=== PATIENT | male | born 1995 | race Hispanic/Latino ===

== ENCOUNTER 2018-10-04 00:13 | Emergency (ER) | payer OTHER ==
[2018-10-04 01:00] LABS: Basophils % (Auto) 0.4 % (0.0-1.8); Eosinophils % (Auto) 0.3 % (0.0-4.3); Hematocrit 38.6 % (35.5-45.6); Hemoglobin 13.7 gm/dl (11.8-15.2); Lymphocytes # (Auto) 2.6 K/mm3 (1.2-5.4); Lymphocytes % (Auto) 27.6 % (13.4-35.0); Mean Corpuscular HGB Conc 36 % (32-34); Mean Corpuscular Volume 96 fl (84-94); Monocytes # (Auto) 1.3 K/mm3 (0.0-0.8); Monocytes % (Auto) 14.2 % (0.0-7.3); Platelet Count 159 K/mm3 (140-440); Red Blood Count 4.03 M/mm3 (3.65-5.03)
[2018-10-04 01:07] LABS: BUN/Creatinine Ratio 30; Blood Urea Nitrogen 24 mg/dL (9-20); Calcium 9.7 mg/dL (8.4-10.2); Hemolysis Index 8
--- NOTE | 2018-10-04 02:08 | Emergency Department Report ---
ED General Adult HPI - General Chief complaint: Medical Clearance Stated complaint: CHEST PAIN Time Seen by Provider: 10/04/18 01:30 Source: patient Mode of arrival: Ambulatory Limitations: Language Barrier - History of Present Illness Initial comments: 23 yo M presents to ED. Pt reports he was recently released from senior living. Currentlt staying at [facility], but does not want to stay there anymore. Pt initially triaged as abdominal pain. However, pt denies. Pt states denies any pain at all. States he is concerned that blood pressure may be elevated. Denies AYALA, dizziness. This patient is familiar to me as I have taken care of him at other facilities. Pt has severe speech impediment, very difficult to understand. Somewhat able to write, however, spelling is usually incorrect. Today, pt denies SI, HI. Denies drug use -: This evening Associated Symptoms: denies: chest pain, headaches, nausea/vomiting, shortness of breath - Related Data Allergies Allergy/AdvReac Type Severity Reaction Status Date / Time No Known Allergies Allergy Unverified 10/04/18 00:22 ED Review of Systems ROS: Stated complaint: CHEST PAIN Other details as noted in HPI Comment: All other systems reviewed and negative Respiratory: denies: shortness of breath Cardiovascular: denies: chest pain Gastrointestinal: denies: abdominal pain Neurological: denies: headache ED Physical Exam - General Limitations: No Limitations General appearance: alert, in no apparent distress - Head Head exam: Present: atraumatic, normocephalic - Eye Eye exam: Present: normal appearance - ENT ENT exam: Present: mucous membranes moist - Neck Neck exam: Present: normal inspection - Respiratory Respiratory exam: Present: normal lung sounds bilaterally. Absent: respiratory distress - Cardiovascular Cardiovascular Exam: Present: regular rate, normal rhythm - GI/Abdominal GI/Abdominal exam: Present: soft. Absent: distended, tenderness - Extremities Exam Extremities exam: Present: normal inspection - Neurological Exam Neurological exam: Present: alert, other (severe speech impediment present). Absent: motor sensory deficit - Psychiatric Psychiatric exam: Present: normal affect, normal mood - Skin Skin exam: Present: warm, dry, intact, normal color ED Course Vital Signs 10/04/18 00:20 Temperature 98.3 F Pulse Rate 88 Respiratory 20 Rate Blood Pressure 121/72 O2 Sat by Pulse 96 Oximetry ED Medical Decision Making - Lab Data Result diagrams: 10/04/18 00:25 10/04/18 00:25 Critical care attestation.: If time is entered above; I have spent that time in minutes in the direct care of this critically ill patient, excluding procedure time. ED Disposition Clinical Impression: No problem, feared complaint unfounded Disposition: DC-01 TO HOME OR SELFCARE Is pt being admited?: No Condition: Stable Referrals: ARELTH BLACKBURN MD [Primary Care Provider] - 3-5 Days Time of Disposition: 02:09
[2018-10-04 04:11] VITALS: BP 105/50
== END 2018-10-04 03:40 | disposition home or self-care (01) ==
LOC: ED 00:13
DX: Z71.1 Person with feared health complaint in whom no diagnosis is made (principal)
CPT/HCPCS: 36415; 80048; 85025; 99283; G0480; 80320

== ENCOUNTER 2019-02-23 20:03 | Emergency (ER) | payer MEDICARE ==
[2019-02-23 20:36] VITALS: BP 112/80
--- NOTE | 2019-02-23 20:38 | Event Note ---
ED Screening Note Date of service: 02/23/19 Time: 20:31 ED Screening Note: This is a 23 y.o. M. that presents to the ER requesting help. Patient states his girlfriend and dad dropped him off at the hospital. Denies SI/HI This initial assessment/diagnostic orders/clinical plan/treatment(s) is/are subject to change based on patients health status, clinical progression and re- assessment by fellow clinical providers in the ED. Further treatment and workup at subsequent clinical providers discretion. Patient/guardian urged not to elope from the ED as their condition may be serious if not clinically assessed and managed. Initial orders include:
--- NOTE | 2019-02-23 20:53 | Emergency Department Report ---
Chief Complaint: Medical Clearance Stated Complaint: KIM DAVIS Time Seen by Provider: 02/23/19 20:24 - HPI History of Present Illness: Disregard prior MSE note. This is a 23 y.o. M. that presents to the ER requesting help. Patient states his girlfriend and dad dropped him off at the hospital. Patient states he was here last night and talked to the social worker aide. States he have no complaints and don't understand why he is here. Denies SI/HI, chest pain, palpitations, shortness of breath, nausea, vomiting - Exam Vital Signs: Vital Signs 02/23/19 20:32 Temperature 98.3 F Pulse Rate 100 H Respiratory 20 Rate Blood Pressure 112/80 O2 Sat by Pulse 100 Oximetry MSE screening note: Focused history and physical exam performed. Due to findings the following was ordered: ED Medical Decision Making - Medical Decision Making Patient seen by this provider. Vitals are stable and patient in no acute distress. Patient not sure why he wad dropped off in the ER. Denies chest pain, sob, n/v/d, abdominal pain, palpitations, and SI/HI thoughts. Patient was in ER yesterday and stayed until this morning and spoke with social worker aide. Patient left after speaking with social worker aide. At time of discharge, the patient does not seem toxic or ill in appearance. No acute signs of distress noted. Patient agrees to discharge treatment plan of care. No further questions noted by the patient. ED Disposition for MSE Clinical Impression: Feared complaint without diagnosis Disposition: DC-01 TO HOME OR SELFCARE Is pt being admited?: No Condition: Stable Referrals: [facility] [Outside] - 3-5 Days [facility] [Outside] - 3-5 Days [facility] [Outside] - 3-5 Days
== END 2019-02-23 21:05 | disposition home or self-care (01) ==
LOC: ED 20:03 → EDBD 20:03 → ED 21:05
DX: Z71.1 Person with feared health complaint in whom no diagnosis is made (principal); Z88.0 Allergy status to penicillin; Z88.6 Allergy status to analgesic agent
CPT/HCPCS: 99282

== ENCOUNTER 2019-04-12 19:39 | Emergency (ER) | payer MEDICARE ==
[2019-04-12 21:08] LABS: Basophils % (Auto) 0.7 % (0.0-1.8); Eosinophils # (Auto) 0.1 K/mm3 (0.0-0.4); Hematocrit 44.9 % (35.5-45.6); Hemoglobin 15.8 gm/dl (11.8-15.2); Lymphocytes # (Auto) 1.8 K/mm3 (1.2-5.4); Lymphocytes % (Auto) 38.6 % (13.4-35.0); Mean Corpuscular HGB Conc 35 % (32-34); Mean Corpuscular Volume 95 fl (84-94); Monocytes # (Auto) 0.5 K/mm3 (0.0-0.8); Monocytes % (Auto) 10.4 % (0.0-7.3); Platelet Count 188 K/mm3 (140-440); Red Blood Count 4.72 M/mm3 (3.65-5.03); Red Cell Distribution Width 13.7 % (13.2-15.2)
[2019-04-12 21:17] LABS: Bilirubin,Urine NEG (Negative); Blood,Urine NEG (Negative); Color,Urine Yellow (Yellow); Protein,Urine <15 mg/dL mg/dL (Negative); Urobilinogen,Urine < 2.0 mg/dL (<2.0)
[2019-04-12 21:22] LABS: Amphetamine Screen,Urine PRESUMPTIVE NEGATIVE; Benzodiazepines Screen,Urine PRESUMPTIVE NEGATIVE; Cannabinoid Screen,Urine PRESUMPTIVE NEGATIVE; Cocaine Screen,Urine PRESUMPTIVE NEGATIVE; Methadone Screen,Urine PRESUMPTIVE NEGATIVE; Opiate Screen,Urine PRESUMPTIVE NEGATIVE
[2019-04-12 21:26] LABS: BUN/Creatinine Ratio 14; Blood Urea Nitrogen 10 mg/dL (9-20); Calcium 9.4 mg/dL (8.4-10.2); Hemolysis Index 13
--- NOTE | 2019-04-12 22:40 | Emergency Department Report ---
<RIVER SIMON - Last Filed: 04/12/19 22:36> ED Psych HPI - General Chief Complaint: Psych Stated Complaint: MH Time Seen by Provider: 04/12/19 20:40 Source: patient Mode of arrival: Ambulatory Limitations: No Limitations - History of Present Illness Initial Comments: 23-year-old male with a past medical history schizophrenia, HIV, bipolar, intellectual disability, speech impediment presents to the hospital with possible manic episode. Patient admits to not taking his medication for the last 4 weeks. He does recall that he is on Geodon. As per triage counselor from [facility] stated that patient is manic and not sleeping for days. Patient is cooperative and calm in the ED and denies suicidal or h omicidal ideation. pmh as per chart, pt admits to taking geodon but does not admit to any specific medical problem - Related Data Allergies Allergy/AdvReac Type Severity Reaction Status Date / Time Penicillins Allergy Unknown Verified 02/23/19 20:47 tramadol Allergy Unknown Verified 02/23/19 20:48 ziprasidone Allergy Unknown Verified 02/23/19 20:48 ED Review of Systems Comment: All other systems reviewed and negative ED Past Medical Hx - Past Medical History Previous Medical History?: Yes Hx Psychiatric Treatment: Yes (Schizophrenia,Bipolar,intellectual disability) Hx HIV: Yes Additional medical history: Inellectual disability, Speech impediment,inpatient - Surgical History Past Surgical History?: No - Social History Smoking Status: Current Every Day Smoker Substance Use Type: None ED Physical Exam - General Limitations: No Limitations - Other Other exam information: General: No acute distress Head: Atraumatic Eyes: normal appearance ENT: Moist mucous membranes Neck: Normal appearance, no midline tenderness Chest: Clear to auscultation bilaterally CV: Regular rate and rhythm Abdomen: Soft, normal bowel sounds, nontender, nondistended, no rebound or guarding Back: Normal inspection Extremity: Normal inspection infection, full range of motion Neuro: Alert O x 3, no facial asymmetry, speech impediment, no gross motor sensory deficit Psych: Appropriate behavior Skin: No rash ED Medical Decision Making - Lab Data Result diagrams: 04/12/19 20:48 04/12/19 20:48 Lab Results 04/12/19 04/12/19 04/12/19 Range/Units 20:48 20:48 20:48 WBC (4.5-11.0) K/mm3 RBC (3.65-5.03) M/mm3 Hgb (11.8-15.2) gm/dl Hct (35.5-45.6) % MCV (84-94) fl MCH (28-32) pg MCHC (32-34) % RDW (13.2-15.2) % Plt Count (140-440) K/mm3 Lymph % (Auto) (13.4-35.0) % [place] % (Auto) (0.0-7.3) % Eos % (Auto) (0.0-4.3) % Baso % (Auto) (0.0-1.8) % Lymph # (1.2-5.4) K/mm3 [place] # (0.0-0.8) K/mm3 Eos # (0.0-0.4) K/mm3 Baso # (0.0-0.1) K/mm3 Seg Neutrophils % (40.0-70.0) % Seg Neutrophils # (1.8-7.7) K/mm3 Sodium (137-145) mmol/L Potassium (3.6-5.0) mmol/L Chloride (98-107) mmol/L Carbon Dioxide (22-30) mmol/L Anion Gap mmol/L BUN (9-20) mg/dL Creatinine (0.8-1.5) mg/dL Estimated GFR ml/min BUN/Creatinine Ratio % Glucose (75-100) mg/dL Calcium (8.4-10.2) mg/dL Urine Color Yellow (Yellow) Urine Turbidity Cloudy (Clear) Urine pH 8.0 H (5.0-7.0) Ur Specific [place] 1.015 (1.003-1.030) Urine Protein <15 mg/dl (Negative) mg/dL Urine Glucose (UA) Neg (Negative) mg/dL Urine Ketones Neg (Negative) mg/dL Urine Blood Neg (Negative) Urine Nitrite Neg (Negative) Urine Bilirubin Neg (Negative) Urine Urobilinogen < 2.0 (<2.0) mg/dL Ur Leukocyte Esterase Neg (Negative) Urine WBC (Auto) 3.0 (0.0-6.0) /HPF Urine RBC (Auto) 1.0 (0.0-6.0) /HPF Urine Yeast (Budding) 3+ /HPF Salicylates < 0.3 L (2.8-20.0) mg/dL Urine Opiates Screen Presumptive negative Urine Methadone Screen Presumptive negative Acetaminophen (10.0-30.0) ug/mL Ur Barbiturates Screen Presumptive negative Ur Phencyclidine Scrn Presumptive negative Ur Amphetamines Screen Presumptive negative U Benzodiazepines Scrn Presumptive negative Urine Cocaine Screen Presumptive negative U Marijuana (THC) Screen Presumptive negative Drugs of Abuse Note Disclamer Plasma/Serum Alcohol (0-0.07) % 04/12/19 04/12/19 04/12/19 Range/Units 20:48 20:48 20:48 WBC (4.5-11.0) K/mm3 RBC (3.65-5.03) M/mm3 Hgb (11.8-15.2) gm/dl Hct (35.5-45.6) % MCV (84-94) fl MCH (28-32) pg MCHC (32-34) % RDW (13.2-15.2) % Plt Count (140-440) K/mm3 Lymph % (Auto) (13.4-35.0) % [place] % (Auto) (0.0-7.3) % Eos % (Auto) (0.0-4.3) % Baso % (Auto) (0.0-1.8) % Lymph # (1.2-5.4) K/mm3 [place] # (0.0-0.8) K/mm3 Eos # (0.0-0.4) K/mm3 Baso # (0.0-0.1) K/mm3 Seg Neutrophils % (40.0-70.0) % Seg Neutrophils # (1.8-7.7) K/mm3 Sodium 139 (137-145) mmol/L Potassium 3.8 (3.6-5.0) mmol/L Chloride 106.1 (98-107) mmol/L Carbon Dioxide 23 (22-30) mmol/L Anion Gap 14 mmol/L BUN 10 (9-20) mg/dL Creatinine 0.7 L (0.8-1.5) mg/dL Estimated GFR > 60 ml/min BUN/Creatinine Ratio 14 % Glucose 94 (75-100) mg/dL Calcium 9.4 (8.4-10.2) mg/dL Urine Color (Yellow) Urine Turbidity (Clear) Urine pH (5.0-7.0) Ur Specific [place] (1.003-1.030) Urine Protein (Negative) mg/dL Urine Glucose (UA) (Negative) mg/dL Urine Ketones (Negative) mg/dL Urine Blood (Negative) Urine Nitrite (Negative) Urine Bilirubin (Negative) Urine Urobilinogen (<2.0) mg/dL Ur Leukocyte Esterase (Negative) Urine WBC (Auto) (0.0-6.0) /HPF Urine RBC (Auto) (0.0-6.0) /HPF Urine Yeast (Budding) /HPF Salicylates (2.8-20.0) mg/dL Urine Opiates Screen Urine Methadone Screen Acetaminophen < 5.0 L (10.0-30.0) ug/mL Ur Barbiturates Screen Ur Phencyclidine Scrn Ur Amphetamines Screen U Benzodiazepines Scrn Urine Cocaine Screen U Marijuana (THC) Screen Drugs of Abuse Note Plasma/Serum Alcohol < 0.01 (0-0.07) % 04/12/19 Range/Units 20:48 WBC 4.6 (4.5-11.0) K/mm3 RBC 4.72 (3.65-5.03) M/mm3 Hgb 15.8 H (11.8-15.2) gm/dl Hct 44.9 (35.5-45.6) % MCV 95 H (84-94) fl MCH 33 H (28-32) pg MCHC 35 H (32-34) % RDW 13.7 (13.2-15.2) % Plt Count 188 (140-440) K/mm3 Lymph % (Auto) 38.6 H (13.4-35.0) % [place] % (Auto) 10.4 H (0.0-7.3) % Eos % (Auto) 3.0 (0.0-4.3) % Baso % (Auto) 0.7 (0.0-1.8) % Lymph # 1.8 (1.2-5.4) K/mm3 [place] # 0.5 (0.0-0.8) K/mm3 Eos # 0.1 (0.0-0.4) K/mm3 Baso # 0.0 (0.0-0.1) K/mm3 Seg Neutrophils % 47.3 (40.0-70.0) % Seg Neutrophils # 2.2 (1.8-7.7) K/mm3 Sodium (137-145) mmol/L Potassium (3.6-5.0) mmol/L Chloride (98-107) mmol/L Carbon Dioxide (22-30) mmol/L Anion Gap mmol/L BUN (9-20) mg/dL Creatinine (0.8-1.5) mg/dL Estimated GFR ml/min BUN/Creatinine Ratio % Glucose (75-100) mg/dL Calcium (8.4-10.2) mg/dL Urine Color (Yellow) Urine Turbidity (Clear) Urine pH (5.0-7.0) Ur Specific [place] (1.003-1.030) Urine Protein (Negative) mg/dL Urine Glucose (UA) (Negative) mg/dL Urine Ketones (Negative) mg/dL Urine Blood (Negative) Urine Nitrite (Negative) Urine Bilirubin (Negative) Urine Urobilinogen (<2.0) mg/dL Ur Leukocyte Esterase (Negative) Urine WBC (Auto) (0.0-6.0) /HPF Urine RBC (Auto) (0.0-6.0) /HPF Urine Yeast (Budding) /HPF Salicylates (2.8-20.0) mg/dL Urine Opiates Screen Urine Methadone Screen Acetaminophen (10.0-30.0) ug/mL Ur Barbiturates Screen Ur Phencyclidine Scrn Ur Amphetamines Screen U Benzodiazepines Scrn Urine Cocaine Screen U Marijuana (THC) Screen Drugs of Abuse Note Plasma/Serum Alcohol (0-0.07) % - Medical Decision Making pt is medically cleared pending psych eval for guidance regarding treatment - Differential Diagnosis psychosis, bipolar, clark, medication noncompliance Critical Care Time: No ED Disposition Clinical Impression: Bipolar disorder, Medical clearance for psychiatric admission, Noncompliance with medication regimen, Schizophrenia Disposition: DC-01 TO HOME OR SELFCARE Condition: Stable Referrals: [facility] [Outside] - 3-5 Days <FLORENCE ROWELL - Last Filed: 04/13/19 15:57> ED Review of Systems ROS: Stated complaint: MH Other details as noted in HPI ED Course Vital Signs 04/12/19 04/13/19 04/13/19 19:51 01:28 07:00 Temperature 98 F 98.5 F 98.3 F Pulse Rate 84 88 99 H Respiratory 18 16 20 Rate Blood Pressure 130/82 118/58 97/61 [Right] O2 Sat by Pulse 97 95 Oximetry 04/13/19 08:27 Temperature 98.3 F Pulse Rate 98 H Respiratory 18 Rate Blood Pressure 118/66 [Right] O2 Sat by Pulse Oximetry ED Medical Decision Making - Lab Data Result diagrams: 04/12/19 20:48 04/12/19 20:48 - Medical Decision Making Our psychiatric team has evaluated Mr. Montenegro. He was deemed appropriate for discharge. He was not on involuntary hold. He was referred to the ED for insomnia. Critical care attestation.: If time is entered above; I have spent that time in minutes in the direct care of this critically ill patient, excluding procedure time. ED Disposition Is pt being admited?: No Does the pt Need Aspirin: No
[2019-04-13 08:30] VITALS: BP 118/66
== END 2019-04-13 16:30 | disposition home or self-care (01) ==
LOC: ED 19:39
DX: F31.9 Bipolar disorder, unspecified (principal); F20.9 Schizophrenia, unspecified; F17.200 Nicotine dependence, unspecified, uncomplicated; Z88.0 Allergy status to penicillin; Z88.6 Allergy status to analgesic agent
CPT/HCPCS: 36415; 80048; 80307; 80320; 81001; 85025; G0480

== ENCOUNTER 2019-06-17 09:18 | Emergency (ER) | payer MEDICARE ==
[2019-06-17 09:23] VITALS: BP 126/73
--- NOTE | 2019-06-17 11:18 | Emergency Department Report ---
ED Psych HPI - General Chief Complaint: Psych Stated Complaint: MH Time Seen by Provider: 06/17/19 10:25 Source: patient Mode of arrival: Ambulatory - History of Present Illness Initial Comments: Patient is a 23-year-old male with a past medical history of schizophrenia and bipolar disorder and developmental delay who is presenting with erratic behavior. Patient was noted at his day center to be showing poor judgment and poor impulse control. Patient took his clothes off and was running around his day center. Was noted that the patient has been off of his Zyprexa for the past 3 days. - Related Data Previous Rx's Medication Instructions Recorded Last Taken Type OLANZapine [Zyprexa] 5 mg PO QHS #30 tablet 06/17/19 Unknown Rx OLANZapine [Zyprexa] 20 mg PO QHS #30 tablet 06/17/19 Unknown Rx Allergies Allergy/AdvReac Type Severity Reaction Status Date / Time Penicillins Allergy Unknown Verified 02/23/19 20:47 tramadol Allergy Unknown Verified 02/23/19 20:48 ziprasidone Allergy Unknown Verified 02/23/19 20:48 ED Review of Systems ROS: Stated complaint: MH Other details as noted in HPI Comment: All other systems reviewed and negative ED Past Medical Hx - Past Medical History Previous Medical History?: Yes Hx Psychiatric Treatment: Yes (Schizophrenia,Bipolar,intellectual disability) Hx HIV: Yes Additional medical history: Inellectual disability, Speech impediment,inpatient - Surgical History Past Surgical History?: No - Social History Smoking Status: Never Smoker Substance Use Type: None - Medications Home Medications: Home Medications Medication Instructions Recorded Confirmed Last Taken Type OLANZapine [Zyprexa] 5 mg PO QHS #30 tablet 06/17/19 Unknown Rx OLANZapine [Zyprexa] 20 mg PO QHS #30 tablet 06/17/19 Unknown Rx ED Physical Exam - General Limitations: Altered Mental Status General appearance: alert, in no apparent distress - Head Head exam: Present: atraumatic, normocephalic - Eye Eye exam: Present: normal appearance - ENT ENT exam: Present: mucous membranes moist - Neck Neck exam: Present: normal inspection - Respiratory Respiratory exam: Present: normal lung sounds bilaterally. Absent: respiratory distress, wheezes, rales, rhonchi - Cardiovascular Cardiovascular Exam: Present: regular rate, normal rhythm. Absent: systolic murmur, diastolic murmur, rubs, gallop - GI/Abdominal GI/Abdominal exam: Present: soft, normal bowel sounds. Absent: distended, tenderness, guarding, rebound - Rectal Rectal exam: Present: deferred - Extremities Exam Extremities exam: Present: normal inspection - Back Exam Back exam: Present: normal inspection - Neurological Exam Neurological exam: Present: alert, oriented X3 - Psychiatric Psychiatric exam: Present: normal affect, normal mood - Skin Skin exam: Present: warm, dry, intact, normal color. Absent: rash ED Course Vital Signs 06/17/19 06/17/19 09:22 10:19 Temperature 97.9 F Pulse Rate 92 H Respiratory 20 16 Rate Blood Pressure 126/73 [Right] O2 Sat by Pulse 96 Oximetry ED Medical Decision Making - Medical Decision Making Patient is not showing any signs of homicidal suicidal tendencies. Patient will be restarted on his Zyprexa and discharged home. Critical care attestation.: If time is entered above; I have spent that time in minutes in the direct care of this critically ill patient, excluding procedure time. ED Disposition Clinical Impression: Behavior disturbance, Medication refill Disposition: DC-01 TO HOME OR SELFCARE Is pt being admited?: No Does the pt Need Aspirin: No Condition: Stable Prescriptions: OLANZapine [Zyprexa] 20 mg PO QHS #30 tablet OLANZapine [Zyprexa] 5 mg PO QHS #30 tablet Time of Disposition: 11:18
== END 2019-06-17 11:21 | disposition home or self-care (01) ==
LOC: ED 09:18
DX: F91.9 Conduct disorder, unspecified (principal); F20.9 Schizophrenia, unspecified; F31.9 Bipolar disorder, unspecified; Z76.0 Encounter for issue of repeat prescription; Z88.0 Allergy status to penicillin; Z88.8 Allergy status to other drugs, medicaments and biological substances; Z21 Asymptomatic human immunodeficiency virus [HIV] infection status; Z79.899 Other long term (current) drug therapy

== ENCOUNTER 2019-07-30 22:47 | Emergency (ER) | payer MEDICARE ==
--- NOTE | 2019-07-30 23:13 | Emergency Department Report ---
<FLORENCE ROWELL - Last Filed: 07/30/19 23:55> ED Psych HPI - General Chief Complaint: Psych Stated Complaint: SUICIDAL THOUGHTS/MH EVAL Time Seen by Provider: 07/30/19 23:02 Source: patient, EMS Mode of arrival: Ambulatory Limitations: No Limitations - History of Present Illness Initial Comments: Mr. Montenegro is a 24-year-old male with history of bipolar disorder schizophrenia intellectual developmental delay who presents with suicidal and homicidal ideation. He denies intention to harm himself. He states that he wants to kill his father because he was not allowed to hang out with his parents. He did not take his psychiatric medications recently. Denies physical complaints. MD Complaint: suicidal ideation, other (Homicidal ideation) -: Sudden, This evening Associated Psychiatric Symptoms: suicidal ideation, homicidal ideation History of same: Yes Quality: constant Improves With: none Worsens With: none Context: not taking psychiatric Associated Symptoms: denies other symptoms Treatments Prior to Arrival: none If Self Harm: admits thoughts of - Related Data Previous Rx's Medication Instructions Recorded Last Taken Type OLANZapine [Zyprexa] 5 mg PO QHS #30 tablet 06/17/19 Unknown Rx OLANZapine [Zyprexa] 20 mg PO QHS #30 tablet 06/17/19 Unknown Rx Allergies Allergy/AdvReac Type Severity Reaction Status Date / Time Penicillins Allergy Unknown Verified 02/23/19 20:47 tramadol Allergy Unknown Verified 02/23/19 20:48 ziprasidone Allergy Unknown Verified 02/23/19 20:48 ED Review of Systems Comment: All other systems reviewed and negative Constitutional: denies: fever, malaise Cardiovascular: denies: chest pain Gastrointestinal: denies: abdominal pain Neurological: denies: headache Psychiatric: depression, homicidal thoughts, suicidal thoughts ED Past Medical Hx - Past Medical History Previous Medical History?: Yes Hx Psychiatric Treatment: Yes (Schizophrenia,Bipolar,intellectual disability) Hx HIV: Yes Additional medical history: Inellectual disability, Speech impediment,inpatient - Social History Smoking Status: Current Every Day Smoker Substance Use Type: Prescribed - Medications Home Medications: Home Medications Medication Instructions Recorded Confirmed Last Taken Type OLANZapine [Zyprexa] 5 mg PO QHS #30 tablet 06/17/19 07/30/19 Unknown Rx OLANZapine [Zyprexa] 20 mg PO QHS #30 tablet 06/17/19 07/30/19 Unknown Rx ED Physical Exam - General Limitations: No Limitations General appearance: alert, in no apparent distress - Head Head exam: Present: atraumatic, normocephalic - Eye Eye exam: Present: normal appearance - ENT ENT exam: Present: mucous membranes moist - Neck Neck exam: Present: normal inspection, full ROM - Respiratory Respiratory exam: Present: normal lung sounds bilaterally. Absent: respiratory distress, wheezes, rales, rhonchi - Cardiovascular Cardiovascular Exam: Present: regular rate, normal rhythm, normal heart sounds. Absent: systolic murmur, diastolic murmur, rubs, gallop - GI/Abdominal GI/Abdominal exam: Present: soft, normal bowel sounds. Absent: distended, tenderness, guarding, rebound - Rectal Rectal exam: Present: deferred - Extremities Exam Extremities exam: Present: normal inspection - Back Exam Back exam: Present: normal inspection - Neurological Exam Neurological exam: Present: alert, oriented X3 - Psychiatric Psychiatric exam: Present: normal affect, agitated, homicidal ideation - Skin Skin exam: Present: warm, dry, intact, normal color. Absent: rash ED Medical Decision Making - Lab Data Result diagrams: 07/30/19 23:08 07/30/19 23:08 Laboratory Results - last 24 hr 07/30/19 07/30/19 07/30/19 23:08 23:08 23:08 WBC 8.2 RBC 4.81 Hgb 16.3 H Hct 44.5 MCV 93 MCH 34 H MCHC 37 H RDW 13.8 Plt Count 220 Lymph % (Auto) 39.1 H Callahan % (Auto) 9.6 H Eos % (Auto) 2.2 Baso % (Auto) 0.5 Lymph # 3.2 Callahan # 0.8 Eos # 0.2 Baso # 0.0 Seg Neutrophils % 48.6 Seg Neutrophils # 4.0 Sodium 139 Potassium 3.9 Chloride 99.2 Carbon Dioxide 25 Anion Gap 19 BUN 19 Creatinine 1.0 Estimated GFR > 60 BUN/Creatinine Ratio 19 Glucose 113 H Calcium 9.9 Total Bilirubin 0.20 AST 19 ALT 17 Alkaline Phosphatase 79 Total Protein 7.2 Albumin 5.0 Albumin/Globulin Ratio 2.3 Urine Color Urine Turbidity Urine pH Ur Specific [place] Urine Protein Urine Glucose (UA) Urine Ketones Urine Blood Urine Nitrite Urine Bilirubin Urine Urobilinogen Ur Leukocyte Esterase Urine WBC (Auto) Urine RBC (Auto) Urine Bacteria (Auto) Amorphous Crystals Salicylates < 0.3 L Urine Opiates Screen Urine Methadone Screen Acetaminophen Ur Barbiturates Screen Ur Phencyclidine Scrn Ur Amphetamines Screen U Benzodiazepines Scrn Urine Cocaine Screen U Marijuana (THC) Screen Drugs of Abuse Note Plasma/Serum Alcohol 07/30/19 07/30/19 07/30/19 23:08 23:08 Unknown WBC RBC Hgb Hct MCV MCH MCHC RDW Plt Count Lymph % (Auto) [place] % (Auto) Eos % (Auto) Baso % (Auto) Lymph # Callahan # Eos # Baso # Seg Neutrophils % Seg Neutrophils # Sodium Potassium Chloride Carbon Dioxide Anion Gap BUN Creatinine Estimated GFR BUN/Creatinine Ratio Glucose Calcium Total Bilirubin AST ALT Alkaline Phosphatase Total Protein Albumin Albumin/Globulin Ratio Urine Color Yellow Urine Turbidity Slightly-cloudy Urine pH 6.0 Ur Specific [place] 1.014 Urine Protein <15 mg/dl Urine Glucose (UA) Neg Urine Ketones Neg Urine Blood Neg Urine Nitrite Neg Urine Bilirubin Neg Urine Urobilinogen < 2.0 Ur Leukocyte Esterase Neg Urine WBC (Auto) 1.0 Urine RBC (Auto) 3.0 Urine Bacteria (Auto) 1+ Amorphous Crystals Few Salicylates Urine Opiates Screen Urine Methadone Screen Acetaminophen < 5.0 L Ur Barbiturates Screen Ur Phencyclidine Scrn Ur Amphetamines Screen U Benzodiazepines Scrn Urine Cocaine Screen U Marijuana (THC) Screen Drugs of Abuse Note Plasma/Serum Alcohol < 0.01 07/30/19 Unknown WBC RBC Hgb Hct MCV MCH MCHC RDW Plt Count Lymph % (Auto) [place] % (Auto) Eos % (Auto) Baso % (Auto) Lymph # [place] # Eos # Baso # Seg Neutrophils % Seg Neutrophils # Sodium Potassium Chloride Carbon Dioxide Anion Gap BUN Creatinine Estimated GFR BUN/Creatinine Ratio Glucose Calcium Total Bilirubin AST ALT Alkaline Phosphatase Total Protein Albumin Albumin/Globulin Ratio Urine Color Urine Turbidity Urine pH Ur Specific [place] Urine Protein Urine Glucose (UA) Urine Ketones Urine Blood Urine Nitrite Urine Bilirubin Urine Urobilinogen Ur Leukocyte Esterase Urine WBC (Auto) Urine RBC (Auto) Urine Bacteria (Auto) Amorphous Crystals Salicylates Urine Opiates Screen Presumptive negative Urine Methadone Screen Presumptive negative Acetaminophen Ur Barbiturates Screen Presumptive negative Ur Phencyclidine Scrn Presumptive negative Ur Amphetamines Screen Presumptive negative U Benzodiazepines Scrn Presumptive negative Urine Cocaine Screen Presumptive negative U Marijuana (THC) Screen Presumptive negative Drugs of Abuse Note Disclamer Plasma/Serum Alcohol - Medical Decision Making This is a 24-year-old male with history of bipolar disorder, schizophrenia, and intellectual delay, he presents with persistent homicidal ideation toward his father. He denies suicidal ideation. He is currently medically clear for psychiatric care. I have placed this gentleman on involuntary hold with 1013 protocol. Awaiting treatment recommendations by our psychiatric team. I have reviewed labs obtained. All were within normal limits. ED Disposition Clinical Impression: Bipolar 1 disorder Disposition: DC-01 TO HOME OR SELFCARE Condition: Stable Instructions: Bipolar Disorder (ED), Suicide Prevention for Adults (ED) <ZOFIA MACIAS - Last Filed: 07/31/19 11:45> ED Review of Systems ROS: Stated complaint: SUICIDAL THOUGHTS/MH EVAL Other details as noted in HPI ED Course Vital Signs 07/30/19 07/31/19 23:15 08:12 Temperature 99 F 98.8 F Pulse Rate 79 99 H Respiratory 18 18 Rate Blood Pressure 117/74 123/89 [Right] O2 Sat by Pulse 100 100 Oximetry ED Medical Decision Making - Lab Data Result diagrams: 07/30/19 23:08 07/30/19 23:08 - Medical Decision Making This is a 24-year-old male with history of bipolar disorder, schizophrenia, and intellectual delay, he presents with persistent homicidal ideation toward his father. He denies suicidal ideation. He is currently medically clear for psychiatric care. I have placed this gentleman on involuntary hold with 1013 protocol. Awaiting treatment recommendations by our psychiatric team. I have reviewed labs obtained. All were within normal limits. Patient examined by me. Patient is calm and pleasant. Patient denies any suicidal or homicidal ideation. He also denied any auditory or visual glendy lucination. Patient has been evaluated by our psychiatric team and advised that patient to be discharged home and follow-up as an outpatient. Patient is medically and psychiatrically stable for discharge. Critical care attestation.: If time is entered above; I have spent that time in minutes in the direct care of this critically ill patient, excluding procedure time. ED Disposition Is pt being admited?: No
[2019-07-30 23:24] LABS: Basophils % (Auto) 0.5 % (0.0-1.8); Eosinophils # (Auto) 0.2 K/mm3 (0.0-0.4); Eosinophils % (Auto) 2.2 % (0.0-4.3); Lymphocytes # (Auto) 3.2 K/mm3 (1.2-5.4); Lymphocytes % (Auto) 39.1 % (13.4-35.0); Mean Corpuscular HGB Conc 37 % (32-34); Mean Corpuscular Volume 93 fl (84-94); Monocytes # (Auto) 0.8 K/mm3 (0.0-0.8); Monocytes % (Auto) 9.6 % (0.0-7.3); Platelet Count 220 K/mm3 (140-440); Red Blood Count 4.81 M/mm3 (3.65-5.03); Red Cell Distribution Width 13.8 % (13.2-15.2)
[2019-07-30 23:31] LABS: Amorphous Crystals,Urine Few; Amphetamine Screen,Urine PRESUMPTIVE NEGATIVE; Bacteria,Urine 1+ /HPF (Negative); Benzodiazepines Screen,Urine PRESUMPTIVE NEGATIVE; Bilirubin,Urine NEG (Negative); Blood,Urine NEG (Negative); Cannabinoid Screen,Urine PRESUMPTIVE NEGATIVE; Cocaine Screen,Urine PRESUMPTIVE NEGATIVE; Color,Urine Yellow (Yellow); Methadone Screen,Urine PRESUMPTIVE NEGATIVE; Opiate Screen,Urine PRESUMPTIVE NEGATIVE; Protein,Urine <15 mg/dL mg/dL (Negative); Urobilinogen,Urine < 2.0 mg/dL (<2.0)
[2019-07-30 23:40] LABS: Hematocrit 44.5 % (35.5-45.6); Hemoglobin 16.3 gm/dl (11.8-15.2)
[2019-07-30 23:48] LABS: Alanine Aminotransferase 17 units/L (7-56); BUN/Creatinine Ratio 19; Blood Urea Nitrogen 19 mg/dL (9-20); Calcium 9.9 mg/dL (8.4-10.2); Hemolysis Index 10
[2019-07-31 08:14] VITALS: BP 123/89
== END 2019-07-31 12:25 | disposition home or self-care (01) ==
LOC: ED 22:47
DX: F31.9 Bipolar disorder, unspecified (principal); F20.9 Schizophrenia, unspecified; F17.200 Nicotine dependence, unspecified, uncomplicated; Z79.899 Other long term (current) drug therapy; Z88.0 Allergy status to penicillin; Z88.6 Allergy status to analgesic agent; Z88.8 Allergy status to other drugs, medicaments and biological substances
CPT/HCPCS: 36415; 80053; 80307; 80320; 81001; 85025; G0480

== ENCOUNTER 2019-08-03 21:11 | Emergency (ER) | payer MEDICARE ==
[2019-08-03 21:30] VITALS: BP 128/84
== END 2019-08-03 22:15 | disposition left against medical advice (07) ==
LOC: ED 21:11
DX: R45.850 Homicidal ideations (principal); Z53.21 Procedure and treatment not carried out due to patient leaving prior to being seen by health care provider

== ENCOUNTER 2019-10-07 23:46 | Emergency (ER) | payer MEDICARE ==
[2019-10-08 01:33] LABS: Basophils % (Auto) 0.5 % (0.0-1.8); Eosinophils # (Auto) 0.1 K/mm3 (0.0-0.4); Eosinophils % (Auto) 1.6 % (0.0-4.3); Hematocrit 45.5 % (35.5-45.6); Lymphocytes # (Auto) 2.4 K/mm3 (1.2-5.4); Lymphocytes % (Auto) 31.2 % (13.4-35.0); Mean Corpuscular HGB Conc 35 % (32-34); Mean Corpuscular Volume 95 fl (84-94); Monocytes # (Auto) 0.8 K/mm3 (0.0-0.8); Monocytes % (Auto) 10.3 % (0.0-7.3); Platelet Count 234 K/mm3 (140-440); Red Blood Count 4.81 M/mm3 (3.65-5.03); Red Cell Distribution Width 13.8 % (13.2-15.2)
[2019-10-08 01:45] LABS: Bilirubin,Urine NEG (Negative); Blood,Urine NEG (Negative); Color,Urine Yellow (Yellow); Mucus,Urine FEW /HPF; Protein,Urine <15 mg/dL mg/dL (Negative); Urobilinogen,Urine < 2.0 mg/dL (<2.0)
[2019-10-08 01:50] LABS: Amphetamine Screen,Urine PRESUMPTIVE NEGATIVE; Benzodiazepines Screen,Urine PRESUMPTIVE NEGATIVE; Cannabinoid Screen,Urine PRESUMPTIVE NEGATIVE; Cocaine Screen,Urine PRESUMPTIVE NEGATIVE; Methadone Screen,Urine PRESUMPTIVE NEGATIVE; Opiate Screen,Urine PRESUMPTIVE NEGATIVE
[2019-10-08 01:57] LABS: BUN/Creatinine Ratio 11; Blood Urea Nitrogen 10 mg/dL (9-20); Calcium 9.6 mg/dL (8.4-10.2); Hemolysis Index 15
--- NOTE | 2019-10-08 02:00 | Emergency Department Report ---
HPI <ADALI ROWELL Last Filed: 10/08/19 15:49> - HPI HPI: 24-year-old male presents to the emergency department for a mental health evaluation. The patient is writing down his answers to questions as he does not want to talk at this time. The patient wrote down that he wants to go to [facility] because he wants to "kill [employer]." He denies any suicidal ideations. He denies any current hallucinations. Patient has a history of bipolar disorder, schizophrenia, and some type of intellectual developmental delay. <ROBBIEYAZ Teixeira - Last Filed: 10/10/19 16:03> - General Chief Complaint: Psych Time Seen by Provider: 10/08/19 01:55 ED Past Medical Hx <SORINADALI Last Filed: 10/08/19 15:49> - Past Medical History Previous Medical History?: Yes Hx Psychiatric Treatment: Yes (Schizophrenia,Bipolar,intellectual disability) Hx HIV: Yes Additional medical history: Inellectual disability, Speech impediment, inpatient - Social History Smoking Status: Unknown if ever smoked <ROBBIEYAZ Teixeira - Last Filed: 10/10/19 16:03> - Medications Home Medications: Home Medications Medication Instructions Recorded Confirmed Last Taken Type OLANZapine [Zyprexa] 5 mg PO QHS 10/08/19 10/08/19 Unknown History OLANZapine [Zyprexa] 20 mg PO QHS 10/08/19 10/08/19 Unknown History ED Review of Systems ROS: Stated complaint: SUCIDIAL Other details as noted in HPI <ADALI ROWELL - Last Filed: 10/08/19 15:49> ROS: Stated complaint: SUCIDIAL Other details as noted in HPI Comment: All other systems reviewed and negative Constitutional: denies: chills, fever Respiratory: denies: cough, shortness of breath Cardiovascular: denies: chest pain, palpitations Gastrointestinal: denies: abdominal pain, vomiting Musculoskeletal: denies: back pain Neurological: denies: headache Psychiatric: homicidal thoughts. denies: auditory hallucinations, visual hallucinations, suicidal thoughts <ROBBIEYAZ Teixeira - Last Filed: 10/10/19 16:03> Physical Exam - Physical Exam Vital Signs: Vital Signs 10/08/19 02:20 Temperature 98.0 F Pulse Rate 71 Respiratory 18 Rate Blood Pressure 106/46 [Left] O2 Sat by Pulse 94 Oximetry <ADALI ROWELL - Last Filed: 10/08/19 15:49> - Physical Exam Physical Exam: GENERAL: The patient is well-developed well-nourished. HENT: Normocephalic. Atraumatic. Patient has moist mucous membranes. EYES: Extraocular motions are intact. NECK: Supple. Trachea is midline. CHEST/LUNGS: Clear to auscultation. There is no respiratory distress noted. HEART/CARDIOVASCULAR: Regular. There is no tachycardia. There is no murmur. ABDOMEN: Abdomen is soft, nontender. Patient has normal bowel sounds. SKIN: Skin is warm and dry. NEURO: The patient is awake, alert, and cooperative. The patient has no motor or sensory deficits. MUSCULOSKELETAL: There is no tenderness or deformity. There is no evidence of acute injury. <YAZ AVALOS - Last Filed: 10/10/19 16:03> ED Course Vital Signs 10/08/19 02:20 Temperature 98.0 F Pulse Rate 71 Respiratory 18 Rate Blood Pressure 106/46 [Left] O2 Sat by Pulse 94 Oximetry - Reevaluation(s) Reevaluation #1: 10/08/19 15:50 KVNGSHERICE Male : 1995 MedRec# [id number] 10/08/19 15:41 - Neighborhood Worker's Note by GUILHERME TORRES Acct Num: [id number] : 1995 Patient Age: 24 Pt is a 24 yo male presenting to ED for MHE, as pt reported SI/HI during admission. During ax, pt presented as cooperative, with calm mood and congruent affect. Pt presents with speech impediment and requires simplified questioning, due to intellectual disability. Pt is alert and oriented x 3. Pt reports coming into the hospital because he wanted to hurt stars analytical lead yesterday. Pt is reporting that he had those thoughts because he was high on a drug; however, toxicology is negative. Pt is denying SI/HI. Pt is denying A/V H. Pt reports residing with roommates at [facility], phone number: [phone]. Pt stated that he attends day program at [facility]. Pt denies issues with sleep and appetite. Neighborhood Worker contacted pt's shift manager for collateral information. Per Mal, yesterday pt was informed that he can go back to his fathers home if he continues to display good behaviors. Pt then expressed SI because he does not desire to go back to fathers. Recommendations: Neighborhood Worker briefed case with psychiatry, who is recommending rescinding 1013 and discharging with f/u OP tx. Pt is denying SI/HI and presenting symptoms appear to be behavioral in nature. Initialized on 10/08/19 15:41 - END OF NOTE Patient was assessed by our mental health assessors and 1013 is been rescinded at this time. <ADALI ROWELL - Last Filed: 10/08/19 15:49> ED Medical Decision Making - Lab Data Result diagrams: 10/08/19 01:08 10/08/19 01:08 <ADALI ROWELL - Last Filed: 10/08/19 15:49> - Lab Data Result diagrams: 10/08/19 01:08 10/08/19 01:08 - Medical Decision Making This patient presents for a mental health evaluation. Through triage she mentioned something about being suicidal. To me the patient starts claiming that he is homicidal towards police officers. For this reason the patient has been made a 1013. His labs are mostly unremarkable. Vital signs stable throughout his ED course. The patient is medically cleared for psychiatric placement. <YAZ AVALOS - Last Filed: 10/10/19 16:03> Critical care attestation.: If time is entered above; I have spent that time in minutes in the direct care of this critically ill patient, excluding procedure time. <ADALI ROWELL - Last Filed: 10/08/19 15:49> Critical Care Time: No Critical care attestation.: If time is entered above; I have spent that time in minutes in the direct care of this critically ill patient, excluding procedure time. <YAZ AVALOS - Last Filed: 10/10/19 16:03> ED Disposition Is pt being admited?: No Does the pt Need Aspirin: No <ADALI ROWELL - Last Filed: 10/08/19 15:49> Is pt being admited?: No Time of Disposition: 06:47 <YAZ AVALOS - Last Filed: 10/10/19 16:03> Clinical Impression: Homicidal ideations, Acute psychosis, Drug toxicity Disposition: -01 TO HOME OR SELFCARE Condition: Stable Referrals: PRIMARY CARE, [Primary Care Provider] - 3-5 Days
[2019-10-08 16:04] VITALS: BP 110/60
== END 2019-10-08 16:02 | disposition home or self-care (01) ==
LOC: ED 23:46
DX: F23 Brief psychotic disorder (principal); R45.850 Homicidal ideations; R89.2 Abnormal level of other drugs, medicaments and biological substances in specimens from other organs, systems and tissues; F25.0 Schizoaffective disorder, bipolar type; Z21 Asymptomatic human immunodeficiency virus [HIV] infection status; Z88.0 Allergy status to penicillin; Z79.899 Other long term (current) drug therapy; Z88.8 Allergy status to other drugs, medicaments and biological substances
CPT/HCPCS: 36415; 80048; 80307; 80320; 81001; 85025; G0480

== ENCOUNTER 2020-09-05 12:34 | Emergency (ER) | payer MEDICARE | END 2020-09-05 19:00 | disposition left against medical advice (07) | LOC: ED 12:34 | DX: Z53.21 Procedure and treatment not carried out due to patient leaving prior to being seen by health care provider (principal) ==

== ENCOUNTER 2020-11-08 00:31 | Emergency (ER) | payer MEDICARE ==
--- NOTE | 2020-11-08 01:51 | Emergency Department Report ---
ED Psych HPI - General Chief Complaint: Psych Stated Complaint: MH/SUICIDAL Time Seen by Provider: 11/08/20 01:12 Source: patient Mode of arrival: Ambulatory - History of Present Illness Initial Comments: 25-year-old male presents to the emergency department with complaint of suicidal ideations. When I speak to him he states he no longer has these ideations. He is unable to give a clear history and states that he is a member of the [employer]. He does state that he wants to be back on his medication. He states he takes Cristian CUETO Complaint: suicidal ideation - Related Data Home Medications Medication Instructions Recorded Confirmed Last Taken OLANZapine [Zyprexa] 5 mg PO QHS 10/08/19 10/08/19 Unknown OLANZapine [Zyprexa] 20 mg PO QHS 10/08/19 10/08/19 Unknown Previous Rx's Medication Instructions Recorded Last Taken Type OLANzapine [ZyPREXA] 5 mg PO QDAY #30 tablet 11/08/20 Unknown Rx Allergies Allergy/AdvReac Type Severity Reaction Status Date / Time Penicillins Allergy Unknown Verified 02/23/19 20:47 tramadol Allergy Unknown Verified 02/23/19 20:48 ziprasidone Allergy Unknown Verified 02/23/19 20:48 ED Review of Systems ROS: Stated complaint: MH/SUICIDAL Other details as noted in HPI Comment: Unobtainable due to pts medical conditions ED Past Medical Hx - Past Medical History Hx Psychiatric Treatment: Yes (Schizophrenia,Bipolar,intellectual disability) Hx HIV: Yes Additional medical history: Inellectual disability, Speech impediment, inpatient - Social History Smoking Status: Unknown if ever smoked - Medications Home Medications: Home Medications Medication Instructions Recorded Confirmed Last Taken Type OLANZapine [Zyprexa] 5 mg PO QHS 10/08/19 10/08/19 Unknown History OLANZapine [Zyprexa] 20 mg PO QHS 10/08/19 10/08/19 Unknown History OLANzapine [ZyPREXA] 5 mg PO QDAY #30 tablet 11/08/20 Unknown Rx ED Physical Exam - General Limitations: No Limitations General appearance: alert, in no apparent distress - Head Head exam: Present: atraumatic, normocephalic - Eye Eye exam: Present: normal appearance Pupils: Present: normal accommodation - ENT ENT exam: Present: normal exam - Neck Neck exam: Present: normal inspection - Respiratory Respiratory exam: Absent: respiratory distress - Rectal Rectal exam: Present: deferred - Extremities Exam Extremities exam: Present: normal inspection, full ROM - Back Exam Back exam: Present: normal inspection - Neurological Exam Neurological exam: Present: alert, normal gait, other (Patient is ambulatory with normal gait but unable to participate in full neurological exam) - Psychiatric Psychiatric exam: Present: flat affect, suicidal ideation - Skin Skin exam: Present: dry ED Course Vital Signs 11/08/20 11/08/20 00:53 08:53 Temperature 98.2 F 98.6 F Pulse Rate 74 72 Respiratory 17 18 Rate Blood Pressure 129/78 101/71 [Left] O2 Sat by Pulse 99 100 Oximetry - Reevaluation(s) Reevaluation #1: 11/08/20 02:00 Patient is medically cleared at this time. Is awaiting psychiatric evaluation. ED Medical Decision Making - Lab Data Result diagrams: 11/08/20 01:40 11/08/20 01:40 - Medical Decision Making 25-year-old male presents emergency department complaint of suicidal ideations. Patient has a history of previous visits for the same. Patient does request [facility] will get back to the patient patient to be placed on a 1013 hold. Critical care attestation.: If time is entered above; I have spent that time in minutes in the direct care of this critically ill patient, excluding procedure time. ED Disposition Clinical Impression: Schizoaffective disorder, Bipolar disorder Disposition: DC-01 TO HOME OR SELFCARE Is pt being admited?: No Does the pt Need Aspirin: No Condition: Stable Instructions: Managing Bipolar Disorder, Managing Schizoaffective Disorder Additional Instructions: Please take all prescribed medications according to the instructions. Follow-up in 7 to 14 days with using the following outpatient resources. Return to the emergency department should you develop thoughts of hurting yourself or others, or for any other new concerning symptoms OUTPATIENT MENTAL HEALTH RESOURCES [facility], [facility] Vinnie Armendariz MD: [address], [address] [place] [address] [place] [address] [facility]: [employer] [address] [place] [address] [place] [address] [phone] [facility]: [facility]: [address] [facility] [address] [facility] [place] [address] [facility] [id number] [facility]: Christiano Brown MD: [address] [facility] [address] [facility] [id number] [facility]: [address] [place] [phone] [place] CRISIS AND ACCESS LINE: Prescriptions: OLANzapine [ZyPREXA] 5 mg PO QDAY #30 tablet Referrals: [facility] [Provider Group] - 3-5 Days
[2020-11-08 01:53] LABS: Bacteria,Urine 1+ /HPF (Negative); Bilirubin,Urine NEG (Negative); Blood,Urine NEG (Negative); Color,Urine Yellow (Yellow); Mucus,Urine FEW /HPF; Protein,Urine <15 mg/dL mg/dL (Negative); WBC,Urine < 1.0 /HPF (0.0-6.0)
[2020-11-08 01:58] LABS: Amphetamine Screen,Urine Negative; Benzodiazepines Screen,Urine Negative; Cannabinoid Screen,Urine Negative; Cocaine Screen,Urine Negative; Methadone Screen,Urine Negative; Opiate Screen,Urine Negative
[2020-11-08 02:10] LABS: Basophils # (Auto) 0.1 K/mm3 (0.0-0.1); Basophils % (Auto) 0.6 % (0.0-1.8); Eosinophils # (Auto) 0.1 K/mm3 (0.0-0.4); Hemoglobin 15.8 gm/dl (11.8-15.2); Lymphocytes # (Auto) 2.1 K/mm3 (1.2-5.4); Lymphocytes % (Auto) 25.6 % (13.4-35.0); Mean Corpuscular HGB Conc 35 % (32-34); Mean Corpuscular Volume 97 fl (84-94); Monocytes # (Auto) 0.7 K/mm3 (0.0-0.8); Monocytes % (Auto) 8.9 % (0.0-7.3); Platelet Count 228 K/mm3 (140-440); Red Blood Count 4.64 M/mm3 (3.65-5.03); Red Cell Distribution Width 13.8 % (13.2-15.2)
[2020-11-08 02:23] LABS: BUN/Creatinine Ratio 10; Blood Urea Nitrogen 10 mg/dL (9-20); Calcium 10.1 mg/dL (8.4-10.2); Hemolysis Index 19
[2020-11-08 09:33] VITALS: BP 101/71
--- NOTE | 2020-11-08 10:37 | Event Note ---
Date: 11/08/20 25-year-old male who initially presented with SI but later denied suicidal ideation. He was seen by my colleague and medically cleared for psychiatric evaluation and placement if deemed necessary. Vital signs have been stable. There have been no acute events overnight. Currently awaiting mental health/psychiatry recommendations.
--- NOTE | 2020-11-08 11:03 | Consultation ---
History of Present Illness - Reason for Consult Consult date: 11/08/20 Reason for consult: mental health eval - History of Present Psychiatric Illness Per ER Note: 25-year-old male presents to the emergency department with complaint of suicidal ideations. When I speak to him he states he no longer has these ideations. He is unable to give a clear history and states that he is a member of the [employer]. He does state that he wants to be back on his medication. He states he takes Geodon. The patient was seen today, he is developmentally delayed with a speech impairment. The patient is talkative and is a bit irritable. He says he was upset because "they wouldn't get off my fing truck." He states he lives with his parents and were upset with them. The patient says "they wouldn't listen." He says "I told them to get off my fing truck." When asking the patient was he still suicidal or wanting to hurt anyone, the patient replies "no, I'm good now." He denies hallucinations. He denies any illicit drug use, or alcohol. PAST PSYCHIATRIC HISTORY Diagnoses: bipolar Suicide attempts or Self-harm behavior: Denies Prior psychiatric hospitalizations: Denies Substance Abuse history: Denies Previous psychiatric medications tried: geodon, zyprexa Outpatient treatment: None reported PAST MEDICAL HISTORY: None reported Family Psychiatric History: None reported or documented SOCIAL HISTORY Marital Status: Single Living Arrangements:with parents Employment Status: disabled Access to guns/weapons: None reported Education: History of Abuse: None report Legal History: None reported REVIEW OF SYSTEMS Constitutional: Negative for weight loss ENT: Negative for stridor Respiratory: Negative for cough or hemoptysis All other systems reviewed and are negative MENTAL STATUS EXAMINATION General Appearance and Behavior: Age appropriate, fair hygiene, wearing appropriate clothes, good eye contact, cooperative with questioning, irritable at times. Cooperation: Participating/engaged Psychomotor Behavior: unremarkable and within normal limits Mood: "I'm good now" Affect and affective range: congruent with mood Thought Process: circumstantial Thought Content: none Speech: impaired Suicidal Ideation: Denies SI Homicidal Ideation: Denies HI Hallucinations: Denies Delusions: None elicited Impulse Control: Limited Insight and Judgment: Limited insight and judgment, Memory: Limited Attention: Normal, Orientation: Alert, oriented Assessment and Plan (1) Mood Disorder, Unspecified Treatment Plan Refill Olanzapine 5mg po daily Risks, benefits and alternatives of medications discussed with the patient, questions answered and consent obtained from patient. PSYCHOTHERAPY: Supportive psychotherapy provided MEDICAL: Per primary team DELIRIUM PRECAUTIONS: Please re-orient patient frequently, keep lights on during the day, and minimize benzodiazepines and opiates as these medications could worsen patient's confusion. DIRECTOR OF DATABASE MARKETING: Defer to primary DISPOSITION: Do Not Recommend acute inpatient psychiatric hospitalization at this time. FOLLOW-UP: Will sign off Thank you for the consult. Please contact with any questions and/or concerns. Case discussed with Dr. Meza who agrees with current disposition Medications and Allergies Allergies Allergy/AdvReac Type Severity Reaction Status Date / Time Penicillins Allergy Unknown Verified 02/23/19 20:47 tramadol Allergy Unknown Verified 02/23/19 20:48 ziprasidone Allergy Unknown Verified 02/23/19 20:48 Home Medications Medication Instructions Recorded Confirmed Last Taken Type OLANZapine [Zyprexa] 5 mg PO QHS 10/08/19 10/08/19 Unknown History OLANZapine [Zyprexa] 20 mg PO QHS 10/08/19 10/08/19 Unknown History OLANzapine [ZyPREXA] 5 mg PO QDAY #30 tablet 11/08/20 Unknown Rx Mental Status Exam - Vital signs Last Vital Signs Temp 98.6 F 11/08/20 08:53 Pulse 72 11/08/20 08:53 Resp 18 11/08/20 08:53 BP 101/71 11/08/20 08:53 Pulse Ox 100 11/08/20 08:53 Results Result Diagrams: 11/08/20 01:40 11/08/20 01:40 Abnormal lab results 11/08/20 11/08/20 11/08/20 Range/Units 01:40 01:40 01:40 Hgb 15.8 H (11.8-15.2) gm/dl MCV 97 H (84-94) fl MCH 34 H (28-32) pg MCHC 35 H (32-34) % [place] % (Auto) 8.9 H (0.0-7.3) % Salicylates < 0.3 L (2.8-20.0) mg/dL Acetaminophen 5.0 L (10.0-30.0) ug/mL All other labs normal.
== END 2020-11-08 14:46 | disposition home or self-care (01) ==
LOC: ED 00:31
DX: F25.0 Schizoaffective disorder, bipolar type (principal); Z20.822 Contact with and (suspected) exposure to COVID-19; Z79.899 Other long term (current) drug therapy; Z21 Asymptomatic human immunodeficiency virus [HIV] infection status; Z88.0 Allergy status to penicillin; Z88.8 Allergy status to other drugs, medicaments and biological substances
CPT/HCPCS: 36415; 80048; 80307; 81001; 85025; 99284; U0003; 80320; G0480

== ENCOUNTER 2021-07-15 02:11 | Emergency (ER) | payer MEDICARE ==
[2021-07-15] MEDS ORDERED: SODIUM CHLORIDE 0.9% 1000 ML 1,000 ML IV ONE (08:14)
[2021-07-15 08:38] LABS: Basophils % (Auto) 0.3 % (0.0-1.8); Eosinophils # (Auto) 0.1 K/mm3 (0.0-0.4); Eosinophils % (Auto) 0.9 % (0.0-4.3); Hematocrit 44.1 % (35.5-45.6); Hemoglobin 15.2 gm/dl (11.8-15.2); Lymphocytes # (Auto) 1.5 K/mm3 (1.2-5.4); Lymphocytes % (Auto) 19.9 % (13.4-35.0); Mean Corpuscular HGB Conc 35 % (32-34); Mean Corpuscular Volume 96 fl (84-94); Monocytes # (Auto) 0.8 K/mm3 (0.0-0.8); Monocytes % (Auto) 10.4 % (0.0-7.3); Platelet Count 227 K/mm3 (140-440); Red Blood Count 4.61 M/mm3 (3.65-5.03); Red Cell Distribution Width 13.4 % (13.2-15.2)
[2021-07-15 08:55] LABS: Bilirubin,Urine NEG (Negative); Blood,Urine NEG (Negative); Color,Urine Colorless (Yellow); Protein,Urine <15 mg/dL mg/dL (Negative); RBC,Urine < 1.0 /HPF (0.0-6.0); Urobilinogen,Urine < 2.0 mg/dL (<2.0); WBC,Urine < 1.0 /HPF (0.0-6.0)
[2021-07-15 08:59] LABS: Alanine Aminotransferase 12 units/L (7-56); Albumin 4.6 g/dL (3.9-5); Blood Urea Nitrogen 9 mg/dL (9-20); Calcium 9.9 mg/dL (8.4-10.2); Hemolysis Index 10
--- NOTE | 2021-07-15 09:00 | Emergency Department Report ---
ED Psych HPI - General Chief Complaint: Psych Stated Complaint: EVAL Source: patient Mode of arrival: Ambulatory - History of Present Illness Initial Comments: Patient is a 25-year-old male presents emergency department with concern for alcohol intoxication. Apparently patient does have history of schizo for any other, bipolar, developmental delay and speech impediment. Patient unable to give history. - Related Data Home Medications Medication Instructions Recorded Confirmed Last Taken OLANZapine [Zyprexa] 5 mg PO QHS 10/08/19 10/08/19 Unknown OLANZapine [Zyprexa] 20 mg PO QHS 10/08/19 10/08/19 Unknown Previous Rx's Medication Instructions Recorded Last Taken Type OLANzapine [ZyPREXA] 5 mg PO QDAY #30 tablet 11/08/20 Unknown Rx OLANzapine [ZyPREXA] 5 mg PO DAILY 30 Days #30 07/15/21 Unknown Rx Allergies Allergy/AdvReac Type Severity Reaction Status Date / Time Penicillins Allergy Unknown Verified 07/04/21 21:45 tramadol Allergy Unknown Verified 07/04/21 21:45 ziprasidone Allergy Unknown Verified 07/04/21 21:45 ED Review of Systems ROS: Stated complaint: EVAL Other details as noted in HPI Comment: Unobtainable due to pts medical conditions ED Past Medical Hx - Past Medical History Hx Psychiatric Treatment: Yes Hx HIV: Yes Additional medical history: schizo, BIPOLAR. mild mental retardation, speech impediment - Surgical History Additional Surgical History: GUM - Social History Smoking Status: Current Every Day Smoker Substance Use Type: None, Alcohol - Medications Home Medications: Home Medications Medication Instructions Recorded Confirmed Last Taken Type OLANZapine [Zyprexa] 5 mg PO QHS 10/08/19 10/08/19 Unknown History OLANZapine [Zyprexa] 20 mg PO QHS 10/08/19 10/08/19 Unknown History OLANzapine [ZyPREXA] 5 mg PO QDAY #30 tablet 11/08/20 Unknown Rx OLANzapine [ZyPREXA] 5 mg PO DAILY 30 Days #30 07/15/21 Unknown Rx ED Physical Exam - General Limitations: Language Barrier General appearance: alert, in no apparent distress - Head Head exam: Present: atraumatic, normocephalic - Eye Eye exam: Present: normal appearance - ENT ENT exam: Present: mucous membranes dry - Neck Neck exam: Present: normal inspection - Respiratory Respiratory exam: Present: normal lung sounds bilaterally. Absent: respiratory distress - Cardiovascular Cardiovascular Exam: Present: regular rate - GI/Abdominal GI/Abdominal exam: Present: soft, normal bowel sounds. Absent: distended, tenderness - Rectal Rectal exam: Present: deferred - Extremities Exam Extremities exam: Present: normal inspection - Back Exam Back exam: Present: normal inspection - Neurological Exam Neurological exam: Present: alert, other (speech impediment noted, patient with normal gait, moves extremities normally) - Psychiatric Psychiatric exam: Present: normal affect, normal mood - Skin Skin exam: Present: warm, dry, intact, normal color. Absent: rash ED Course Vital Signs 07/15/21 07/15/21 02:21 09:07 Temperature 97.5 F L 97.8 F Pulse Rate 85 65 Respiratory 18 18 Rate Blood Pressure 139/72 Blood Pressure 101/74 [Left] O2 Sat by Pulse 97 100 Oximetry - Reevaluation(s) Reevaluation #1: 07/15/21 12:47 Medically clear. He is also been seen by psych. They state that patient's prescription can be refilled and he can be seen by case management. I discussed with case management who stated that patient is able to go back to his [facility]. ED Medical Decision Making - Lab Data Result diagrams: 07/15/21 08:20 07/15/21 08:20 - EKG Data -: EKG Interpreted by Me EKG shows normal: sinus rhythm Rate: normal - EKG Data Interpretation: normal EKG - Medical Decision Making Patient is a 25-year-old male history of schizophrenia, bipolar disorder, developmental delay speech impediment. There is concerned that patient could be intoxicated. Plan for evaluation with basic labs including blood alcohol level and other toxins. Patient is awaiting mental health consultation. Critical care attestation.: If time is entered above; I have spent that time in minutes in the direct care of this critically ill patient, excluding procedure time. ED Disposition Clinical Impression: Encounter for medical screening examination Disposition: HOME / SELF CARE / HOMELESS Is pt being admited?: No Does the pt Need Aspirin: No Condition: Stable Additional Instructions: OUTPATIENT MENTAL HEALTH RESOURCES [facility], [facility] Vinnie Armendariz MD: [address], [address] [place] [address] [place] [address] [facility]: [employer] [facility] [address] [place] [address] [place] [address] [phone] [facility]: [facility]: [address] [facility] [address] [facility] [address] [facility] [address] [facility]: Christiano Brown MD: [address] [facility] [address] [facility] [address] [facility]: [address] [facility] [place] [address] [phone] [place] CRISIS AND ACCESS LINE: SUBSTANCE ABUSE PROGRAMS: [facility]: Location: [place], [place] [employer] Address: [address] [place] [address] [facility]: Address: [address] [place] [address] [facility]: Address: [address] [place] [address] [facility] Community: Address: [address] [place] [address] [facility] Address: [address] [place] [address]. Please contact above numbers to attempt placement into free based program. Medicaid Programs: [facility]: Address: [address] [place] [address] [facility]: Address: [address] [place] [address] Prescriptions: OLANzapine [ZyPREXA] 5 mg PO DAILY 30 Days #30 Referrals: PRIMARY CARE, [Primary Care Provider] - 3-5 Days
[2021-07-15 09:02] LABS: Amphetamine Screen,Urine Negative; Benzodiazepines Screen,Urine Negative; Cannabinoid Screen,Urine Negative; Cocaine Screen,Urine Negative; Methadone Screen,Urine Negative; Opiate Screen,Urine Negative
[2021-07-15 09:09] VITALS: BP 101/74
[2021-07-15 09:14] LABS: BUN/Creatinine Ratio 15
--- NOTE | 2021-07-15 11:19 | Consultation ---
History of Present Illness - Reason for Consult Consult date: 07/15/21 Reason for consult: Mental health evaluation - History of Present Psychiatric Illness The patient is a 25 year old male with history of bipolar disorder who presents to the ED with concern for alcohol intoxication. In my encounter with the patient, he is calm, alert and oriented. The patient has impaired speech. He reports that he is homeless and was hungry. The patient denies any current suicidal/homicidal ideation and denies hallucinations. No withdrawal symptoms noted. PAST PSYCHIATRIC HISTORY Diagnoses: Bipolar, Developmental delay Suicide attempts or Self-harm behavior: Denies Prior psychiatric hospitalizations: Denies Substance Abuse history: Denies Previous psychiatric medications tried: Geodon, Zyprexa Outpatient treatment: None reported PAST MEDICAL HISTORY: None reported Family Psychiatric History: None reported or documented SOCIAL HISTORY Marital Status: Single Living Arrangements:with parents Employment Status: disabled Access to guns/weapons: None reported Education: History of Abuse: None report Legal History: None reported REVIEW OF SYSTEMS Constitutional: Negative for weight loss ENT: Negative for stridor Respiratory: Negative for cough or hemoptysis All other systems reviewed and are negative MENTAL STATUS EXAMINATION General Appearance and Behavior: Age appropriate, fair hygiene, unkempt, good eye contact, cooperative with questioning, Cooperation: Participating/engaged Psychomotor Behavior: unremarkable and within normal limits Mood: "ok" Affect and affective range: congruent with mood Thought Process: circumstantial Thought Content: none Speech: impaired Suicidal Ideation: Denies SI Homicidal Ideation: Denies HI Hallucinations: Denies Delusions: None elicited Impulse Control: Limited Insight and Judgment: poor insight and judgment, Memory: Limited Attention: Normal, Orientation: Alert, oriented Assessment and Plan (1) Mood Disorder, Unspecified Treatment Plan Case management Refill Olanzapine 5mg po daily Risks, benefits and alternatives of medications discussed with the patient, questions answered and consent obtained from patient. PSYCHOTHERAPY: Supportive psychotherapy provided MEDICAL: Per primary team DELIRIUM PRECAUTIONS: Please re-orient patient frequently, keep lights on during the day, and minimize benzodiazepines and opiates as these medications could worsen patient's confusion. INSULATION NOZZLEMAN: Defer to primary DISPOSITION: Do Not Recommend acute inpatient psychiatric hospitalization at this time. [facility] [employer] will provide patient with psychiatric outpatient resources. FOLLOW-UP: Will sign off Thank you for the consult. Please contact with any questions and/or concerns. Case discussed with Dr. Meza who agrees with current disposition Medications and Allergies Medications and Allergies Allergies Allergy/AdvReac Type Severity Reaction Status Date / Time Penicillins Allergy Unknown Verified 07/04/21 21:45 tramadol Allergy Unknown Verified 07/04/21 21:45 ziprasidone Allergy Unknown Verified 07/04/21 21:45 Home Medications Medication Instructions Recorded Confirmed Last Taken Type OLANZapine [Zyprexa] 5 mg PO QHS 10/08/19 10/08/19 Unknown History OLANZapine [Zyprexa] 20 mg PO QHS 10/08/19 10/08/19 Unknown History OLANzapine [ZyPREXA] 5 mg PO QDAY #30 tablet 11/08/20 Unknown Rx OLANzapine [ZyPREXA] 5 mg PO DAILY 30 Days #30 07/15/21 Unknown Rx Mental Status Exam - Vital signs Last Vital Signs Temp 97.8 F 07/15/21 09:07 Pulse 65 07/15/21 09:07 Resp 18 07/15/21 09:07 BP 101/74 07/15/21 09:07 Pulse Ox 100 07/15/21 09:07 Results Result Diagrams: 07/15/21 08:20 07/15/21 08:20 Abnormal lab results 07/15/21 07/15/21 07/15/21 Range/Units 08:20 08:20 08:20 MCV 96 H (84-94) fl MCH 33 H (28-32) pg MCHC 35 H (32-34) % [place] % (Auto) 10.4 H (0.0-7.3) % Creatinine 0.6 L (0.8-1.3) mg/dL Salicylates < 0.3 L (2.8-20.0) mg/dL Acetaminophen (10.0-30.0) ug/mL 07/15/21 Range/Units 08:20 MCV (84-94) fl MCH (28-32) pg MCHC (32-34) % [place] % (Auto) (0.0-7.3) % Creatinine (0.8-1.3) mg/dL Salicylates (2.8-20.0) mg/dL Acetaminophen 5.0 L (10.0-30.0) ug/mL All other labs normal.
--- NOTE | 2021-07-16 09:17 | Electrocardiograph Report ---
[facility] Test Date: 2021-07-15 Test Time: 08:38:27 Pat Name: SHERICE CALDERON Department: Room: Gender: M Aircraft Systems Repairer: NGOZI : 1995 Requested By: SHLOMO MENDEZ Order Number: [id number] Reading MD: Cal Hurd Measurements Intervals [place] Rate: 61 P: 41 [place]: 157 QRS: 77 QRSD: 83 T: 60 QT: 406 QTc: 410 Interpretive Statements Sinus rhythm nonspecific st-t No previous ECG available for comparison Electronically Signed On 07-16-2021 9:16:58 EST by Cal Hurd
== END 2021-07-15 14:54 | disposition home or self-care (01) ==
LOC: ED 02:11
DX: Z00.00 Encounter for general adult medical examination without abnormal findings (principal); F20.9 Schizophrenia, unspecified; F31.9 Bipolar disorder, unspecified
CPT/HCPCS: 36415; 80053; 80307; 81001; 83735; 85025; 93005; 99284; J7030; 80320; Q0162; G0480

== ENCOUNTER 2021-07-15 23:24 | Emergency (ER) | payer MEDICARE ==
[2021-07-16] MEDS ORDERED: HALOPERIDOL LACTATE 5 MG/1 ML INJ IM PRN (01:47)
[2021-07-16] MEDS ORDERED: LORazepam 2 MG/ML VIAL IM PRN (01:47)
--- NOTE | 2021-07-16 01:50 | Emergency Department Report ---
ED General Adult HPI - General Chief complaint: Psych Stated complaint: Do not touch me, leave me alone Time Seen by Provider: 07/16/21 01:41 Source: patient, RN notes reviewed, old records reviewed Mode of arrival: Ambulatory Limitations: Other (Patient is disorganized and a poor historian) - History of Present Illness Initial comments: The patient is a 25-year-old gentleman. He initially presented to the ER today with a triage complaint of wanting to detox. He also told the triage nurse that he wants to kill or hurt an individual named Jorge. The patient was cleared by the psychiatric team yesterday. He was medically cleared by my colleague y . In the emergency room, the patient is uncooperative, and will not answer my questions. The patient does not demonstrate decision-making capacity, and he is placed on a 1013. He is not accompanied by friends or family at this time for collateral information or additional information. His agitated behavior was much improved with haloperidol and Ativan. -: unknown - Related Data Home Medications Medication Instructions Recorded Confirmed Last Taken OLANZapine [Zyprexa] 5 mg PO QHS 10/08/19 10/08/19 Unknown OLANZapine [Zyprexa] 20 mg PO QHS 10/08/19 10/08/19 Unknown Previous Rx's Medication Instructions Recorded Last Taken Type OLANzapine [ZyPREXA] 5 mg PO QDAY #30 tablet 11/08/20 Unknown Rx OLANzapine [ZyPREXA] 5 mg PO DAILY 30 Days #30 07/15/21 Unknown Rx Allergies Allergy/AdvReac Type Severity Reaction Status Date / Time Penicillins Allergy Unknown Verified 07/04/21 21:45 tramadol Allergy Unknown Verified 07/04/21 21:45 ziprasidone Allergy Unknown Verified 07/04/21 21:45 ED Review of Systems ROS: Stated complaint: MENTAL HEALTH CONCERNS Other details as noted in HPI Comment: Unobtainable due to pts medical conditions (Psychosis, patient not cooperating with history and physical) ED Past Medical Hx - Past Medical History Hx Psychiatric Treatment: Yes Hx HIV: Yes Additional medical history: schizo, BIPOLAR. mild mental retardation, speech impediment - Surgical History Additional Surgical History: GUM - Social History Smoking Status: Current Every Day Smoker Substance Use Type: None, Alcohol - Medications Home Medications: Home Medications Medication Instructions Recorded Confirmed Last Taken Type OLANZapine [Zyprexa] 5 mg PO QHS 10/08/19 10/08/19 Unknown History OLANZapine [Zyprexa] 20 mg PO QHS 10/08/19 10/08/19 Unknown History OLANzapine [ZyPREXA] 5 mg PO QDAY #30 tablet 11/08/20 Unknown Rx OLANzapine [ZyPREXA] 5 mg PO DAILY 30 Days #30 07/15/21 Unknown Rx ED Physical Exam - General Limitations: Other (Disorganized behavior, agitation, and psychosis) General appearance: anxious - Head Head exam: Present: atraumatic, normocephalic - Eye Eye exam: Present: normal appearance, EOMI. Absent: nystagmus - ENT ENT exam: Present: normal exam, normal orophraynx, mucous membranes moist, normal external ear exam - Neck Neck exam: Present: normal inspection, full ROM. Absent: tenderness, meningismus - Respiratory Respiratory exam: Present: normal lung sounds bilaterally. Absent: respiratory distress, wheezes, rales, rhonchi, stridor, decreased breath sounds - Cardiovascular Cardiovascular Exam: Present: regular rate, normal rhythm, normal heart sounds. Absent: bradycardia, tachycardia, irregular rhythm, systolic murmur, diastolic murmur, rubs, gallop - GI/Abdominal GI/Abdominal exam: Present: soft. Absent: distended, tenderness, guarding, rebound, rigid, pulsatile mass - Rectal Rectal exam: Present: deferred - Extremities Exam Extremities exam: Present: normal inspection, full ROM, other (2+ pulses noted in the bilateral upper and lower extremities. There is no palpable cord. negative Homans sign. Muscular compartments are soft. The pelvis is stable.). Absent: pedal edema, calf tenderness - Back Exam Back exam: Present: normal inspection, full ROM. Absent: tenderness, CVA tenderness (R), CVA tenderness (L), paraspinal tenderness, vertebral tenderness - Neurological Exam Neurological exam: Present: normal gait, other (There is no facial droop. The tongue is midline. EOMI. 5 out of 5 strength in 4 extremities) - Psychiatric Psychiatric exam: Present: agitated, anxious - Skin Skin exam: Present: warm, dry, intact, normal color. Absent: rash ED Course Vital Signs 07/16/21 07/16/21 07/16/21 00:35 02:32 02:58 Temperature 98.4 F 97.5 F L Pulse Rate 69 66 Respiratory 18 19 16 Rate Blood Pressure 106/65 Blood Pressure 94/52 [Right] O2 Sat by Pulse 99 100 95 Oximetry - Reevaluation(s) Reevaluation #1: 07/16/21 02:57 Differential diagnosis, including but not limited to: Homelessness, medical clearance for psychiatric placement, encounter for medical screening exam Assessment and plan: 25-year-old gentleman who appears to be homeless, who is likely presenting for the purposes of secondary gain. He had a medical screening examination by my colleague within the past 24 hours which was unremarkable. His physical examination today is unremarkable. Laboratory studies within the past 24 hours were unremarkable. Repeat laboratory studies will be requested to exclude emergent toxicologic ingestion. 1013 ordered and written by myself. Mental health/psychiatric consultation is requested. The patient is currently resting comfortably on his examination chair and in no acute distress. 07/16/21 04:05 Laboratory studies are unremarkable. Urinalysis, drug screen and Covid swab pending. These were negative within the past 36 hours. The emergency room will follow along as the patient provides the samples. At this point in time, this patient does not appear to have an immediate medical contraindication to psychiatric admission, evaluation, consultation and placement ED Medical Decision Making - Lab Data Result diagrams: 07/16/21 01:58 07/16/21 01:58 Vital Signs 07/16/21 07/16/21 00:35 02:32 Temperature 98.4 F Pulse Rate 69 Respiratory 18 19 Rate Blood Pressure 106/65 O2 Sat by Pulse 99 100 Oximetry Lab Results 07/16/21 07/16/21 Range/Units 01:58 01:58 WBC 6.0 (4.5-11.0) K/mm3 RBC 4.58 (3.65-5.03) M/mm3 Hgb 15.1 (11.8-15.2) gm/dl Hct 44.4 (35.5-45.6) % MCV 97 H (84-94) fl MCH 33 H (28-32) pg MCHC 34 (32-34) % RDW 13.1 L (13.2-15.2) % Plt Count 244 (140-440) K/mm3 Acetaminophen 5.0 L (10.0-30.0) ug/mL Critical care attestation.: If time is entered above; I have spent that time in minutes in the direct care of this critically ill patient, excluding procedure time. ED Disposition Clinical Impression: Encounter for medical screening examination, Schizophrenia, Encounter for beha vioral health screening Disposition: [address] [facility] Is pt being admited?: No Does the pt Need Aspirin: No Condition: Good Referrals: THI MAURO MD [Primary Care Provider] - 3-5 Days
[2021-07-16 02:47] LABS: Blood Urea Nitrogen 9 mg/dL (9-20); Calcium 9.5 mg/dL (8.4-10.2); Hematocrit 44.4 % (35.5-45.6); Hemoglobin 15.1 gm/dl (11.8-15.2); Hemolysis Index 7; Mean Corpuscular HGB Conc 34 % (32-34); Mean Corpuscular Volume 97 fl (84-94); Platelet Count 244 K/mm3 (140-440); Red Blood Count 4.58 M/mm3 (3.65-5.03); Red Cell Distribution Width 13.1 % (13.2-15.2)
[2021-07-16 03:00] LABS: BUN/Creatinine Ratio 13
[2021-07-16 09:31] VITALS: BP 90/50
--- NOTE | 2021-07-16 09:54 | Progress Note ---
Subjective - Reason for Consult Consult date: 07/16/21 Reason for consult: agitation - Chief Complaint Chief complaint: The patient was seen today. He was seen yesterday and cleared by the previous psych provider. Case management was also consulted for this patient yesterday. The patient is sleeping but easily arouses. He is a little irritable. He has a speech impediment and is difficult to understand. He says he came to the ER for "weed and alcohol." The patient denies suicidal thoughts. When asked was he homicidal, he says "I wanted to kill tom yesterday." He denies homicidal thoughts today. REVIEW OF SYSTEMS Constitutional: Negative for weight loss ENT: Negative for stridor Respiratory: Negative for cough or hemoptysis All other systems reviewed and are negative MENTAL STATUS EXAMINATION General Appearance and Behavior: Age appropriate, fair hygiene, unkempt, good eye contact, cooperative with questioning, Cooperation: Participating/engaged Psychomotor Behavior: unremarkable and within normal limits Mood: "ok" Affect and affective range: congruent with mood Thought Process: circumstantial Thought Content: none Speech: impaired Suicidal Ideation: Denies SI Homicidal Ideation: Denies HI Hallucinations: Denies Delusions: None elicited Impulse Control: Limited Insight and Judgment: poor insight and judgment, Memory: Limited Attention: Normal, Orientation: Alert, oriented Assessment and Plan (1) Mood Disorder, Unspecified Treatment Plan Case management prior to the patient discharging Continue previously prescribed meds yesterday Risks, benefits and alternatives of medications discussed with the patient, questions answered and consent obtained from patient. PSYCHOTHERAPY: Supportive psychotherapy provided MEDICAL: Per primary team DELIRIUM PRECAUTIONS: Please re-orient patient frequently, keep lights on during the day, and minimize benzodiazepines and opiates as these medications could worsen patient's confusion. AUTOMOBILE DEALER: Defer to primary DISPOSITION: Do Not Recommend acute inpatient psychiatric hospitalization at this time. Mine Development Engineer will provide patient with psychiatric outpatient resources. FOLLOW-UP: Will sign off Thank you for the consult. Please contact with any questions and/or concerns. Case discussed with Dr. Meza who agrees with current disposition Mental Status Exam - Vital signs Last Vital Signs Temp 98.2 F 07/16/21 09:30 Pulse 78 07/16/21 09:30 Resp 20 07/16/21 09:30 BP 90/50 07/16/21 09:30 Pulse Ox 96 07/16/21 09:30
--- NOTE | 2021-07-16 10:14 | Emergency Department Report ---
Blank Doc - Documentation Documentation: Patient has been cleared from a psychiatric services perspective. He does not meet inpatient criteria for psychiatric care. He does have a history of substance abuse. Allegedly, the longterm that he came from will not accept him back. We are attempting to contact the longterm. Case management consult has been placed for discharge planning. Clinically, he is medically clear and does not require inpatient admission medically.
== END 2021-07-16 15:13 | disposition home or self-care (01) ==
LOC: ED 23:24
DX: Z00.00 Encounter for general adult medical examination without abnormal findings (principal); Z13.30 Encounter for screening examination for mental health and behavioral disorders, unspecified; F20.9 Schizophrenia, unspecified; Z88.0 Allergy status to penicillin; Z20.822 Contact with and (suspected) exposure to COVID-19; Z88.5 Allergy status to narcotic agent
CPT/HCPCS: 36415; 80048; 85027; 96372; 99283; J1630; J2060; U0003; 80320; G0480